=== PATIENT | female | born 1985 ===

== ENCOUNTER 2022-12-18 16:07 | Emergency (ER) | payer OTHER, SELFPAY ==
[2022-12-18 16:22] VITALS: BP 123/77; PULSE 88; RESP 18; TEMP 36.8; O2SAT 97; BMI 35.9
--- NOTE | 2022-12-18 16:24 | ED_ITS ---
HPI - General Adult General Chief complaint: General Medical Stated complaint: bowel movement issues Time Seen by Provider: 12/18/22 20:28 Related Data Allergies Allergy/AdvReac Type Severity Reaction Status Date / Time shellfish derived Allergy Anaphylaxis Verified 12/18/22 16:29 [facility] Social History Social History Smoked in Last 30 Days: No Use of substances other than those prescribed or required for medical reasons: No Advance Directives: No Advance Directives Information Provided: Yes Patient : No Physical Exam ED Vital Signs: Vital Signs - 24 hr 12/18/22 20:41 Temperature 98.0 F Pulse Rate 90 Respiratory Rate 18 Blood Pressure 114/72 Pulse Oximetry 98 Oxygen Delivery Method Room Air BMI result Body Mass Index 35.9 Course Course Course Narrative: RME-- 37 yo w/PMHx fatty liver, renal stone, c/o water diarrhea which turn to fecal incontinence/leaking since Saturday. Denies recent Antibiotic use, travel, sick contacts or melena/brbpr. Denies fever, abd pain, N CDiff, Stool studies, Labs, UA ordered Medical Decision Making Lab Data 12/18/22 17:07 12/18/22 17:07 Labs: Lab Results 12/18/22 12/18/22 12/18/22 Range/Units 17:07 17:07 17:07 WBC 10.8 (4.8-10.8) X10*3/uL RBC 4.73 (4.20-5.50) X10*6/uL Hgb 13.3 (12.0-16.0) g/dl Hct 40.9 (37.0-47.0) % MCV 86.5 (80.0-98.0) fL MCH 28.1 (27.0-33.0) pg MCHC 32.5 (31.0-35.0) g/dl RDW 13.4 (11.0-16.0) % Plt Count 277 (160-400) X10*3/uL MPV 9.1 L (9.4-12.3) fL Immature Gran % (Auto) 0.4 (0.0-0.4) % Neut % (Auto) 76.6 H (45-73) % Lymph % (Auto) 13.6 L (20-40) % [place] % (Auto) 6.8 (2-11) % Eos % (Auto) 2.3 (0-4) % Baso % (Auto) 0.3 (0-2) % Lymph # (Auto) 1.5 (1.2-4.9) X10*3/uL [place] # (Auto) 0.7 (0.1-1.2) X10*3/uL Eos # (Auto) 0.3 (0.0-0.4) X10*3/uL Baso # (Auto) 0.0 (0.0-0.2) X10*3/uL Abs Immat Gran (auto) 0.04 H (0.00-0.03) X10*3/uL Absolute Neuts (auto) 8.3 (2.0-8.3) x10*3/uL Absolute Nucleated RBC 0.000 (0.0-0.012) X10*3/uL Nucleated RBC % (auto) 0.0 (0.0-0.2) /100WBC Sodium 142 (135-145) mmol/L Potassium 4.1 (3.3-5.1) mmol/L Chloride 111 H (96-108) mmol/L Carbon Dioxide 21 L (22-29) mmol/L Anion Gap 14 (12-20) BUN 15 (9-16) mg/dL Creatinine 0.65 (0.5-1.4) mg/dL Estim Creat Clear Calc 131.0 Estimated GFR > 60 Random Glucose 104 (60-115) mg/dL Calcium 8.8 (8.4-10.2) mg/dL Magnesium 1.7 (1.6-2.6) mg/dL Total Bilirubin 0.6 (0.0-1.0) mg/dL Direct Bilirubin < 0.2 (0.0-0.5) mg/dL AST 34 H (5-31) U/L ALT 35 H (0-31) U/L Alkaline Phosphatase 72 (39-117) U/L Total Protein 7.5 (6.5-8.0) g/dL Albumin 4.1 (3.5-5.0) g/dL Beta HCG, Quant < 2 mIU/mL Urine Color Urine Appearance Urine pH (5.0-9.0) Ur Specific [place] (1.005-1.025) Urine Protein (Neg-Trace) mg/dL Urine Glucose (UA) (Negative) mg/dL Urine Ketones (Negative) mg/dL Urine Blood (Negative) Urine Nitrite (Negative) Ur Leukocyte Esterase (Negative) Urine RBC (0-2) /HPF Urine WBC (0-5) /HPF Ur Squamous Epith Cells (0-2) /HPF Urine Bacteria (None Seen) Hyaline Casts (0-2) /LPF Stl C. cayetanensis PCR (Not Detect.) Stool Rotavirus A PCR (Not Detect.) Stl Adenov F 40/41 PCR (Not Detect.) Stool Astrovirus (PCR) (Not Detect.) Stool Campylobacter PCR (Not Detect.) Stool Cryptosporidium PCR (Not Detect.) Stl Sh Tox Pr E STEC PCR (Not Detect.) Stool E coli O157 PCR (Not Detect.) Stl Enterotoxigenic E PCR (Not Detect.) Stool EPEC (PCR) (Not Detect.) Stool EAEC (PCR) (Not Detect.) Stl E. histolytica PCR (Not Detect.) Stool Giardia Lamblia PCR (Not Detect.) Stl P. shigelloides PCR (Not Detect.) Stool Salmonella PCR (Not Detect.) Stool Sapovirus (PCR) (Not Detect.) Stl Shigella/EIEC PCR (Not Detect.) St Y.enterocolitica PCR (Not Detect.) Stool Vibrio (PCR) (Not Detect.) Stl Vibrio cholerae PCR (Not Detect.) Stl Norovirus GI/GII PCR (Not Detect.) C. difficile Tox B Gene NEGATIVE (Negative) 12/18/22 12/18/22 Range/Units 17:07 21:03 WBC (4.8-10.8) X10*3/uL RBC (4.20-5.50) X10*6/uL Hgb (12.0-16.0) g/dl Hct (37.0-47.0) % MCV (80.0-98.0) fL MCH (27.0-33.0) pg MCHC (31.0-35.0) g/dl RDW (11.0-16.0) % Plt Count (160-400) X10*3/uL MPV (9.4-12.3) fL Immature Gran % (Auto) (0.0-0.4) % Neut % (Auto) (45-73) % Lymph % (Auto) (20-40) % [place] % (Auto) (2-11) % Eos % (Auto) (0-4) % Baso % (Auto) (0-2) % Lymph # (Auto) (1.2-4.9) X10*3/uL [place] # (Auto) (0.1-1.2) X10*3/uL Eos # (Auto) (0.0-0.4) X10*3/uL Baso # (Auto) (0.0-0.2) X10*3/uL Abs Immat Gran (auto) (0.00-0.03) X10*3/uL Absolute Neuts (auto) (2.0-8.3) x10*3/uL Absolute Nucleated RBC (0.0-0.012) X10*3/uL Nucleated RBC % (auto) (0.0-0.2) /100WBC Sodium (135-145) mmol/L Potassium (3.3-5.1) mmol/L Chloride (96-108) mmol/L Carbon Dioxide (22-29) mmol/L Anion Gap (12-20) BUN (9-16) mg/dL Creatinine (0.5-1.4) mg/dL Estim Creat Clear Calc Estimated GFR Random Glucose (60-115) mg/dL Calcium (8.4-10.2) mg/dL Magnesium (1.6-2.6) mg/dL Total Bilirubin (0.0-1.0) mg/dL Direct Bilirubin (0.0-0.5) mg/dL AST (5-31) U/L ALT (0-31) U/L Alkaline Phosphatase (39-117) U/L Total Protein (6.5-8.0) g/dL Albumin (3.5-5.0) g/dL Beta HCG, Quant mIU/mL Urine Color Yellow Urine Appearance Clear Urine pH 5.5 (5.0-9.0) Ur Specific [place] 1.025 (1.005-1.025) Urine Protein Negative (Neg-Trace) mg/dL Urine Glucose (UA) Negative (Negative) mg/dL Urine Ketones Negative (Negative) mg/dL Urine Blood Negative (Negative) Urine Nitrite Negative (Negative) Ur Leukocyte Esterase Trace H (Negative) Urine RBC 3-5 H (0-2) /HPF Urine WBC 0-5 (0-5) /HPF Ur Squamous Epith Cells 3-5 (0-2) /HPF Urine Bacteria 1+ (None Seen) Hyaline Casts 0-2 (0-2) /LPF Stl C. cayetanensis PCR Not Detected (Not Detect.) Stool Rotavirus A PCR Not Detected (Not Detect.) Stl Adenov F 40/41 PCR Not Detected (Not Detect.) Stool Astrovirus (PCR) Not Detected (Not Detect.) Stool Campylobacter PCR Not Detected (Not Detect.) Stool Cryptosporidium PCR Not Detected (Not Detect.) Stl Sh Tox Pr E STEC PCR Not Detected (Not Detect.) Stool E coli O157 PCR Not applicable (Not Detect.) Stl Enterotoxigenic E PCR Not Detected (Not Detect.) Stool EPEC (PCR) Not Detected (Not Detect.) Stool EAEC (PCR) Not Detected (Not Detect.) Stl E. histolytica PCR Not Detected (Not Detect.) Stool Giardia Lamblia PCR Detected A (Not Detect.) Stl P. shigelloides PCR Not Detected (Not Detect.) Stool Salmonella PCR Not Detected (Not Detect.) Stool Sapovirus (PCR) Not Detected (Not Detect.) Stl Shigella/EIEC PCR Not Detected (Not Detect.) St Y.enterocolitica PCR Not Detected (Not Detect.) Stool Vibrio (PCR) Not Detected (Not Detect.) Stl Vibrio cholerae PCR Not Detected (Not Detect.) Stl Norovirus GI/GII PCR Not Detected (Not Detect.) C. difficile Tox B Gene (Negative) Discharge Plan Discharge Clinical Impression: Diarrhea Patient Disposition: Home, Self-Care Instructions: Acute Diarrhea (ED) Referrals: Physician,Unknown J [Primary Care Provider] - Interventions: ED Discharge Assessment Last Done: 12/18/22 21:54 Discharge Date/Time: 12/18/22 21:54
[2022-12-18 17:14] LABS: MANUAL DIFF FLAG NO
[2022-12-18 17:16] LABS: Basophils Percent Auto 0.3 % (0-2); Eosinophils Absolute Auto 0.3 X10*3/uL (0.0-0.4); Eosinophils Percent Auto 2.3 % (0-4); Hematocrit 40.9 % (37.0-47.0); Hemoglobin 13.3 g/dl (12.0-16.0); Imm Gran Abs Auto 0.04 X10*3/uL (0.00-0.03); Imm Gran Pct Auto 0.4 % (0.0-0.4); Lymphocytes Absolute Auto 1.5 X10*3/uL (1.2-4.9); Lymphocytes Percent Auto 13.6 % (20-40); Mean Corpuscular HGB Conc 32.5 g/dl (31.0-35.0); Mean Corpuscular Hemoglobin 28.1 pg (27.0-33.0); Mean Corpuscular Volume 86.5 fL (80.0-98.0); Mean Platelet Volume 9.1 fL (9.4-12.3); Monocytes Absolute Auto 0.7 X10*3/uL (0.1-1.2); Monocytes Percent Auto 6.8 % (2-11); Neutrophils Absolute Auto 8.3 x10*3/uL (2.0-8.3); Neutrophils Percent Auto 76.6 % (45-73); Platelet Count 277 X10*3/uL (160-400); Red Blood Count 4.73 X10*6/uL (4.20-5.50); Red Cell Distribution Width 13.4 % (11.0-16.0); White Blood Count 10.8 X10*3/uL (4.8-10.8)
[2022-12-18 17:33] LABS: Alanine Aminotransferase 35 U/L (0-31); Albumin Level 4.1 g/dL (3.5-5.0); Alkaline Phosphatase 72 U/L (39-117); Anion Gap 14 (12-20); Aspartate Amino Transferase 34 U/L (5-31); Bilirubin Direct < 0.2 mg/dL (0.0-0.5); Bilirubin Total 0.6 mg/dL (0.0-1.0); Blood Urea Nitrogen 15 mg/dL (9-16); Calcium 8.8 mg/dL (8.4-10.2); Carbon Dioxide 21 mmol/L (22-29); Chloride 111 mmol/L (96-108); Estimated Glomerular Filt Rate > 60; Glucose Random 104 mg/dL (60-115); Magnesium 1.7 mg/dL (1.6-2.6); Potassium 4.1 mmol/L (3.3-5.1); Sodium 142 mmol/L (135-145); Total Protein 7.5 g/dL (6.5-8.0)
[2022-12-18 18:10] LABS: CDiff Gene PCR NEGATIVE (Negative)
[2022-12-18 20:41] VITALS: BP 114/72; PULSE 90; RESP 18; TEMP 36.7; O2SAT 98
[2022-12-18 21:14] LABS: Appearance Urine Clear; Color Urine Yellow; Glucose Urine UA Negative (Negative); Leukocyte Esterase Urine Trace (Negative); Nitrite Urine Negative (Negative); PH 5.5 (5.0-9.0); Specific Gravity - Urine 1.025 (1.005-1.025); UMIC TRIGGER UACC YES; Urine Blood Negative (Negative); Urine Ketones Negative (Negative); Urine Protein Negative (Neg-Trace)
--- NOTE | 2022-12-18 21:14 | ED_ITS ---
HPI - General Adult General Chief complaint: General Medical Stated complaint: bowel movement issues Time Seen by Provider: 12/18/22 20:28 History of Present Illness HPI narrative: Patient is a 29-year-old female presents today with having diarrhea that has been ongoing for about 4 days. No recent antibiotics no recent travel patient is from home no fever no chills no chest pain or shortness of breath no diaphoresis no coughing or congestion or upper respiratory symptoms. No vomiti ng. No abdominal pain. Diarrhea is brown to green in color. No camping history Related Data Allergies Allergy/AdvReac Type Severity Reaction Status Date / Time shellfish derived Allergy Anaphylaxis Verified 12/18/22 16:29 Review of Systems Review of Systems: Positive diarrhea Yes all other systems are reviewed and are negative PMFSH Past Medical History Attestation statement: The following information was validated with the patient. Social History Social History Advance Directives: No Advance Directives Information Provided: Yes Physical Exam ED Vital Signs: Vital Signs - 24 hr 12/18/22 16:22 12/18/22 20:41 Temperature 98.2 F 98.0 F Pulse Rate 88 90 Respiratory Rate 18 18 Blood Pressure 123/77 114/72 Pulse Oximetry 97 98 Oxygen Delivery Method Room Air Room Air BMI result Body Mass Index 35.9 Appearance: Alert. Oriented X3. No acute distress. Eyes: Pupils equal, round and reactive to light. ENT: Pharynx normal. Neck: Normal inspection. Neck supple. No lymph nodes noted. No crepitus CVS: Normal heart rate and rhythm. Pulses normal. Normal S1 and S2 Respiratory: No respiratory distress. Breath sounds normal. No Wheezing. No rales Abdomen: Soft and nontender. No rigidity. No distention. good BS x4 Skin: Skin warm and dry. Normal skin color. Normal skin turgor. Extremities: No lower extremity edema. Neurovascular intact to all extremities. No Lacerations. No Rash Neuro: Oriented X 3. No motor deficit. No sensory deficit. Moving all extermities. No slurred speech Medical Decision Making Medical Decision Making MDM Narrative: Positive diarrhea generalized malaise abdomen is soft nontender. Patient is able to tolerate fluids. No gross signs of dehydration. Electrolytes were checked. Patient's C diff was checked it was grossly negative. Will discharge patient home after comes back. Currently in stable condition Differential Diagnosis Differential Diagnoses: The differential diagnosis associated with the presentation includes Diarrhea, C diff, dehydration Lab Data MDM Lab Attestation statement: I reviewed the patient's lab results. 12/18/22 17:07 12/18/22 17:07 Labs: Lab Results 12/18/22 12/18/22 12/18/22 Range/Units 17:07 17:07 17:07 WBC 10.8 (4.8-10.8) X10*3/uL RBC 4.73 (4.20-5.50) X10*6/uL Hgb 13.3 (12.0-16.0) g/dl Hct 40.9 (37.0-47.0) % MCV 86.5 (80.0-98.0) fL MCH 28.1 (27.0-33.0) pg MCHC 32.5 (31.0-35.0) g/dl RDW 13.4 (11.0-16.0) % Plt Count 277 (160-400) X10*3/uL MPV 9.1 L (9.4-12.3) fL Immature Gran % (Auto) 0.4 (0.0-0.4) % Neut % (Auto) 76.6 H (45-73) % Lymph % (Auto) 13.6 L (20-40) % [place] % (Auto) 6.8 (2-11) % Eos % (Auto) 2.3 (0-4) % Baso % (Auto) 0.3 (0-2) % Lymph # (Auto) 1.5 (1.2-4.9) X10*3/uL [place] # (Auto) 0.7 (0.1-1.2) X10*3/uL Eos # (Auto) 0.3 (0.0-0.4) X10*3/uL Baso # (Auto) 0.0 (0.0-0.2) X10*3/uL Abs Immat Gran (auto) 0.04 H (0.00-0.03) X10*3/uL Absolute Neuts (auto) 8.3 (2.0-8.3) x10*3/uL Absolute Nucleated RBC 0.000 (0.0-0.012) X10*3/uL Nucleated RBC % (auto) 0.0 (0.0-0.2) /100WBC Sodium 142 (135-145) mmol/L Potassium 4.1 (3.3-5.1) mmol/L Chloride 111 H (96-108) mmol/L Carbon Dioxide 21 L (22-29) mmol/L Anion Gap 14 (12-20) BUN 15 (9-16) mg/dL Creatinine 0.65 (0.5-1.4) mg/dL Estim Creat Clear Calc 131.0 Estimated GFR > 60 Random Glucose 104 (60-115) mg/dL Calcium 8.8 (8.4-10.2) mg/dL Magnesium 1.7 (1.6-2.6) mg/dL Total Bilirubin 0.6 (0.0-1.0) mg/dL Direct Bilirubin < 0.2 (0.0-0.5) mg/dL AST 34 H (5-31) U/L ALT 35 H (0-31) U/L Alkaline Phosphatase 72 (39-117) U/L Total Protein 7.5 (6.5-8.0) g/dL Albumin 4.1 (3.5-5.0) g/dL Beta HCG, Quant < 2 mIU/mL Urine Color Urine Appearance Urine pH (5.0-9.0) Ur Specific [place] (1.005-1.025) Urine Protein (Neg-Trace) mg/dL Urine Glucose (UA) (Negative) mg/dL Urine Ketones (Negative) mg/dL Urine Blood (Negative) Urine Nitrite (Negative) Ur Leukocyte Esterase (Negative) Urine RBC (0-2) /HPF Urine WBC (0-5) /HPF Ur Squamous Epith Cells (0-2) /HPF Urine Bacteria (None Seen) Hyaline Casts (0-2) /LPF C. difficile Tox B Gene NEGATIVE (Negative) 12/18/22 Range/Units 21:03 WBC (4.8-10.8) X10*3/uL RBC (4.20-5.50) X10*6/uL Hgb (12.0-16.0) g/dl Hct (37.0-47.0) % MCV (80.0-98.0) fL MCH (27.0-33.0) pg MCHC (31.0-35.0) g/dl RDW (11.0-16.0) % Plt Count (160-400) X10*3/uL MPV (9.4-12.3) fL Immature Gran % (Auto) (0.0-0.4) % Neut % (Auto) (45-73) % Lymph % (Auto) (20-40) % [place] % (Auto) (2-11) % Eos % (Auto) (0-4) % Baso % (Auto) (0-2) % Lymph # (Auto) (1.2-4.9) X10*3/uL [place] # (Auto) (0.1-1.2) X10*3/uL Eos # (Auto) (0.0-0.4) X10*3/uL Baso # (Auto) (0.0-0.2) X10*3/uL Abs Immat Gran (auto) (0.00-0.03) X10*3/uL Absolute Neuts (auto) (2.0-8.3) x10*3/uL Absolute Nucleated RBC (0.0-0.012) X10*3/uL Nucleated RBC % (auto) (0.0-0.2) /100WBC Sodium (135-145) mmol/L Potassium (3.3-5.1) mmol/L Chloride (96-108) mmol/L Carbon Dioxide (22-29) mmol/L Anion Gap (12-20) BUN (9-16) mg/dL Creatinine (0.5-1.4) mg/dL Estim Creat Clear Calc Estimated GFR Random Glucose (60-115) mg/dL Calcium (8.4-10.2) mg/dL Magnesium (1.6-2.6) mg/dL Total Bilirubin (0.0-1.0) mg/dL Direct Bilirubin (0.0-0.5) mg/dL AST (5-31) U/L ALT (0-31) U/L Alkaline Phosphatase (39-117) U/L Total Protein (6.5-8.0) g/dL Albumin (3.5-5.0) g/dL Beta HCG, Quant mIU/mL Urine Color Yellow Urine Appearance Clear Urine pH 5.5 (5.0-9.0) Ur Specific [place] 1.025 (1.005-1.025) Urine Protein Negative (Neg-Trace) mg/dL Urine Glucose (UA) Negative (Negative) mg/dL Urine Ketones Negative (Negative) mg/dL Urine Blood Negative (Negative) Urine Nitrite Negative (Negative) Ur Leukocyte Esterase Trace H (Negative) Urine RBC 3-5 H (0-2) /HPF Urine WBC 0-5 (0-5) /HPF Ur Squamous Epith Cells 3-5 (0-2) /HPF Urine Bacteria 1+ (None Seen) Hyaline Casts 0-2 (0-2) /LPF C. difficile Tox B Gene (Negative) Discharge Plan Discharge Clinical Impression: Diarrhea Instructions: Acute Diarrhea (ED) Referrals: PhysicianZach [Primary Care Provider] -
[2022-12-18 21:19] LABS: Bacteria Urine 1+ (None Seen); Hyaline Casts Urine 0-2 /LPF (0-2); WBC Urine 0-5 /HPF (0-5)
[2022-12-18 21:26] LABS: HCG Quantitative < 2 mIU/mL
--- NOTE | 2022-12-18 21:53 | PC.NURSE ---
Discharge instructions given/explained to patient no apparent distress Ambulates safely/independently All of patient's questions answered
[2022-12-19 10:46] LABS: Adenovirus F 40/41 Not Detected (Not Detect.); Campylobacter Not Detected (Not Detect.); Cryptosporidium Not Detected (Not Detect.); Cyclospora cayetanensis Not Detected (Not Detect.); E. coli EAEC Not Detected (Not Detect.); E. coli EPEC Not Detected (Not Detect.); E. coli ETEC Not Detected (Not Detect.); E. coli STEC Not Detected (Not Detect.); Entamoeba histolytica Not Detected (Not Detect.); Giardia lamblia Detected (Not Detect.); Plesiomonas shigelloides Not Detected (Not Detect.); Salmonella Not Detected (Not Detect.); Shigella sp./EIEC Not Detected (Not Detect.); Vibrio Not Detected (Not Detect.); Vibrio Cholerae Not Detected (Not Detect.); Yersinia enterocolitica Not Detected (Not Detect.)
[2022-12-19 10:47] LABS: Astrovirus Not Detected (Not Detect.); Norovirus GI/GII Not Detected (Not Detect.); Rotavirus A Not Detected (Not Detect.); Sapovirus Not Detected (Not Detect.)
== END 2022-12-18 21:54 | disposition home or self-care (01) ==
PROVIDERS: Physician Assistant; Emergency Provider Emergency Medicine Emergency Medical Services
DX: R19.7 Diarrhea, unspecified (principal); A07.1 Giardiasis [lambliasis]
CPT/HCPCS: 36415; 80048; 80076; 81001; 83735; 84702; 85025; 87493; 87507; 99283; 99284

== ENCOUNTER 2023-07-04 13:31 | Emergency (ER) | payer OTHER, SELFPAY ==
--- NOTE | ~2023-07-04 | US_ITS ---
EXAMINATION: US PELVIS CLINICAL INFORMATION: Pelvic pain. COMPARISON: None available. TECHNIQUE: Ultrasound of the pelvis is performed using both transabdominal and transvaginal transducers along with Doppler. Transvaginal imaging is performed due to inadequate visualization transabdominally. FINDINGS: Uterus: The uterus is anteverted and measures 8.5 x 4.8 x 4.0 cm. The double wall endometrial thickness is 0.4 mm. An IUD is in place and appears to be in adequate position. The uterus is smooth in contour and has normal myometrial echogenicity. No visible fibroid. Adnexa: Both ovaries are visualized. There is normal color flow to the adnexa. There is no ovarian torsion. There is no pelvic ascites or fluid collection. Right ovary measures 2.3 x 2.2 x 2.4 cm. Flow is demonstrated within the right ovary. Left ovary measures 4.7 x 4.5 x 4.2 cm. Flow is demonstrated within the left ovary. There is a 4.1 x 3.2 x 3.2 cm hypoechoic structure associated with the left ovary. US/US pelvic and transvaginal IMPRESSION: 4.1 x 3.2 x 3.2 cm hypoechoic structure associated with the left ovary likely a hemorrhagic cyst.
--- NOTE | ~2023-07-04 | US_ITS ---
EXAMINATION: US PELVIS CLINICAL INFORMATION: Pelvic pain. COMPARISON: None available. TECHNIQUE: Ultrasound of the pelvis is performed using both transabdominal and transvaginal transducers along with Doppler. Transvaginal imaging is performed due to inadequate visualization transabdominally. FINDINGS: Uterus: The uterus is anteverted and measures 8.5 x 4.8 x 4.0 cm. The double wall endometrial thickness is 0.4 mm. An IUD is in place and appears to be in adequate position. The uterus is smooth in contour and has normal myometrial echogenicity. No visible fibroid. Adnexa: Both ovaries are visualized. There is normal color flow to the adnexa. There is no ovarian torsion. There is no pelvic ascites or fluid collection. Right ovary measures 2.3 x 2.2 x 2.4 cm. Flow is demonstrated within the right ovary. Left ovary measures 4.7 x 4.5 x 4.2 cm. Flow is demonstrated within the left ovary. There is a 4.1 x 3.2 x 3.2 cm hypoechoic structure associated with the left ovary. US/US pelvic ovarian doppler IMPRESSION: 4.1 x 3.2 x 3.2 cm hypoechoic structure associated with the left ovary likely a hemorrhagic cyst.
[2023-07-04 15:14] VITALS: BP 136/85; PULSE 81; RESP 18; TEMP 36.6; O2SAT 98; BMI 38.3
--- NOTE | 2023-07-04 15:20 | ED_ITS ---
HPI - General Adult General Chief complaint: Abdominal Pain Stated complaint: pain and discomfort all over Time Seen by Provider: 07/04/23 19:39 Source: patient Mode of arrival: ambulatory Limitations: no limitations History of Present Illness HPI narrative: 37-year-old female with no significant past medical presents with left lower abdominal pain. Symptoms started approximately 3 weeks ago. The symptoms are intermittent. It has been progressively getting worse. She describes it as a twisting sensation. It is now also CO some mild low back pain. The pain otherwise does not radiate. There is no urinary frequency, urgency or dysuria. Patient has an occasional mucousy vaginal discharge but no vaginal pain or itching or burning. Patient denies any vaginal bleeding. She has had no fevers or chills. There is no clear relieving or exacerbating features. She has been taking ibuprofen without significant improvement. Patient has had a history of a cyst in the past. Related Data Previous Rx's Medication Instructions Recorded naproxen 500 mg tablet 500 mg PO BID PRN pain #20 tabs 07/04/23 Allergies Allergy/AdvReac Type Severity Reaction Status Date / Time shellfish derived Allergy Anaphylaxis Verified 07/04/23 15:14 Review of Systems 2 Review of Systems: CONSTITUTIONAL: Denies weight loss, fever and chills. HEENT: Denies changes in vision and hearing. RESPIRATORY: Denies SOB and cough. CV: Denies palpitations no CP. GI: + abdominal pain,- nausea, vomiting and diarrhea. : Denies dysuria and urinary frequency. MSK: Denies myalgia and joint pain. SKIN: Denies rash and pruritus. NEUROLOGICAL: Denies headache and syncope. PSYCHIATRIC: Denies recent changes in mood. Denies anxiety and depression. All other ROS are negative unless in HPI [facility] Social History Social History Alcohol intake: current Alcohol intake frequency: a few times a month Smoked in Last 30 Days: No Use of substances other than those prescribed or required for medical reasons: No Advance Directives: No Physical Exam ED Vital Signs: Vital Signs - 24 hr 07/04/23 15:14 07/04/23 19:35 Temperature 97.8 F 97.3 F Pulse Rate 81 87 Respiratory Rate 18 16 Blood Pressure 136/85 122/71 Pulse Oximetry 98 98 Oxygen Delivery Method Room Air Room Air BMI result Body Mass Index 38.3 GEN: Well developed, no acute distress, alert, oriented HEENT: Normocephalic, atraumatic, normal external ears, nose appears normal, no oropharyngeal edema or exudates Eyes: Normal to appearance Neck: Supple, no lymphadenopathy Respiratory: Talks in complete sentences, no respiratory distress, clear to auscultation bilaterally Cardiovascular: Regular rate and rhythm, no murmurs rubs or gallops Abdomen: Soft, left lower quadrant tenderness no rebound or guarding, nondistended, no guarding, no rebound Back: No CVA tenderness Extremities: No clubbing cyanosis or edema Neurologic: No focal neurologic deficits, cranial nerves 2-12 intact, strength is 5/5 bilaterally Skin: No rash Course Course Course Narrative: RME: 37 yold female presents to the ED for pelvic pain left flank pain with known Gonohrrea diagnosis. patient also states her OBGYN is concernned due to inability to find IUD and worry about perforaiton. patient states also concerned for kidney stones due to history of left sided kidneys tones. labs orderd Medical Decision Making Medical Decision Making [facility] Narrative: 37-year-old female presents with left lower pelvic pain. Symptoms started 3 weeks ago. Examination reveals some mild tenderness without rebound or guarding. Differential diagnosis could include ovarian cyst, torsion, UTI, pyelonephritis, musculoskeletal pain, IBD, IBS. Plan will be to obtain an ultrasound, routine laboratory analysis, urinalysis. Patient can receive analgesia if requested. Differential Diagnosis Differential Diagnoses: The differential diagnosis associated with the presentation includes (See above) Admission/Observation Consideration of admission/observation: Escalation of care including admission/observation considered Lab Data [facility] Lab Attestation statement: I reviewed the patient's lab results. 07/04/23 15:31 07/04/23 15:31 Labs: Lab Results 07/04/23 Range/Units 15:31 WBC 10.3 (4.8-10.8) X10*3/uL RBC 4.61 (4.20-5.50) X10*6/uL Hgb 13.2 (12.0-16.0) g/dl Hct 40.1 (37.0-47.0) % MCV 87.0 (80.0-98.0) fL MCH 28.6 (27.0-33.0) pg MCHC 32.9 (31.0-35.0) g/dl RDW 13.7 (11.0-16.0) % Plt Count 273 (160-400) X10*3/uL MPV 9.1 L (9.4-12.3) fL Immature Gran % (Auto) 0.4 (0.0-0.4) % Neut % (Auto) 67.2 (45-73) % Lymph % (Auto) 19.6 L (20-40) % [place] % (Auto) 9.6 (2-11) % Eos % (Auto) 2.5 (0-4) % Baso % (Auto) 0.7 (0-2) % Lymph # (Auto) 2.0 (1.2-4.9) X10*3/uL [place] # (Auto) 1.0 (0.1-1.2) X10*3/uL Eos # (Auto) 0.3 (0.0-0.4) X10*3/uL Baso # (Auto) 0.1 (0.0-0.2) X10*3/uL Abs Immat Gran (auto) 0.04 H (0.00-0.03) X10*3/uL Absolute Neuts (auto) 6.9 (2.0-8.3) x10*3/uL Absolute Nucleated RBC 0.000 (0.0-0.012) X10*3/uL Nucleated RBC % (auto) 0.0 (0.0-0.2) /100WBC Sodium 140 (135-145) mmol/L Potassium 3.9 (3.3-5.1) mmol/L Chloride 107 (96-108) mmol/L Carbon Dioxide 22 (22-29) mmol/L Anion Gap 15 (12-20) BUN 13 (9-16) mg/dL Creatinine 0.70 (0.5-1.4) mg/dL Estim Creat Clear Calc 126.1 Estimated GFR > 60 Random Glucose 78 (60-115) mg/dL Calcium 9.2 (8.4-10.2) mg/dL Total Bilirubin 0.5 (0.0-1.0) mg/dL AST 29 (5-31) U/L ALT 24 (0-31) U/L Alkaline Phosphatase 52 (39-117) U/L Total Protein 7.7 (6.5-8.0) g/dL Albumin 4.1 (3.5-5.0) g/dL Beta HCG, Quant < 2 mIU/mL Urine Color Yellow Urine Appearance Cloudy Urine pH 7.5 (5.0-9.0) Ur Specific [place] 1.025 (1.005-1.025) Urine Protein Negative (Neg-Trace) mg/dL Urine Glucose (UA) Negative (Negative) mg/dL Urine Ketones Negative (Negative) mg/dL Urine Blood Negative (Negative) Urine Nitrite Negative (Negative) Ur Leukocyte Esterase Negative (Negative) Urine Test NEGATIVE (NEGATIVE) Independent Interpretation I performed an independent interpretation of an: Ultrasound (Left ovarian cyst) Radiology Impression Discussion of test interpretation with radiology: I have reviewed the radiologist's reading. Radiologist Impression: Impression: 4.1 x 3.2 x 3.2 cm hypoechoic structure associated with left ovary likely a hemorrhagic cyst. Dictated by Dr. John García Prescription Management I considered prescription management with: Pain Medication and Antibiotic Discharge Plan Discharge Clinical Impression: Hemorrhagic cyst of left ovary Patient Disposition: Home, Self-Care Instructions: Ovarian Cyst (ED) Additional Instructions: For pain: Naproxen 500 mg twice a day as needed Tylenol 1000 mg every 6 hours as needed for additional pain relief Prescriptions: New naproxen 500 mg tablet 500 mg PO BID PRN (Reason: pain) Qty: 20 0RF Referrals: [facility] [place] [Outside] - 07/08/23 Interventions: ED Discharge Assessment Last Done: 07/04/23 20:17 Discharge Date/Time: 07/04/23 20:17
[2023-07-04 15:36] LABS: MANUAL DIFF FLAG NO
[2023-07-04 15:37] LABS: Basophils Absolute Auto 0.1 X10*3/uL (0.0-0.2); Basophils Percent Auto 0.7 % (0-2); Eosinophils Absolute Auto 0.3 X10*3/uL (0.0-0.4); Eosinophils Percent Auto 2.5 % (0-4); Hematocrit 40.1 % (37.0-47.0); Hemoglobin 13.2 g/dl (12.0-16.0); Imm Gran Abs Auto 0.04 X10*3/uL (0.00-0.03); Imm Gran Pct Auto 0.4 % (0.0-0.4); Lymphocytes Percent Auto 19.6 % (20-40); Mean Corpuscular HGB Conc 32.9 g/dl (31.0-35.0); Mean Corpuscular Hemoglobin 28.6 pg (27.0-33.0); Mean Platelet Volume 9.1 fL (9.4-12.3); Monocytes Percent Auto 9.6 % (2-11); Neutrophils Absolute Auto 6.9 x10*3/uL (2.0-8.3); Neutrophils Percent Auto 67.2 % (45-73); Platelet Count 273 X10*3/uL (160-400); Red Blood Count 4.61 X10*6/uL (4.20-5.50); Red Cell Distribution Width 13.7 % (11.0-16.0); White Blood Count 10.3 X10*3/uL (4.8-10.8)
[2023-07-04 15:39] LABS: Appearance Urine Cloudy; Color Urine Yellow; Glucose Urine UA Negative (Negative); Leukocyte Esterase Urine Negative (Negative); Nitrite Urine Negative (Negative); PH 7.5 (5.0-9.0); Specific Gravity - Urine 1.025 (1.005-1.025); Urine Blood Negative (Negative); Urine Ketones Negative (Negative); Urine Protein Negative (Neg-Trace)
[2023-07-04 15:43] LABS: UPreg QC Valid YES; Urine Pregnancy NEGATIVE (NEGATIVE)
[2023-07-04 15:58] LABS: Alanine Aminotransferase 24 U/L (0-31); Albumin Level 4.1 g/dL (3.5-5.0); Alkaline Phosphatase 52 U/L (39-117); Anion Gap 15 (12-20); Aspartate Amino Transferase 29 U/L (5-31); Bilirubin Total 0.5 mg/dL (0.0-1.0); Blood Urea Nitrogen 13 mg/dL (9-16); Calcium 9.2 mg/dL (8.4-10.2); Carbon Dioxide 22 mmol/L (22-29); Chloride 107 mmol/L (96-108); Creatinine Clr Calc Pharmacy 126.1; Estimated Glomerular Filt Rate > 60; Glucose Random 78 mg/dL (60-115); Potassium 3.9 mmol/L (3.3-5.1); Sodium 140 mmol/L (135-145); Total Protein 7.7 g/dL (6.5-8.0)
[2023-07-04 16:05] LABS: HCG Quantitative < 2 mIU/mL
[2023-07-04 19:35] VITALS: BP 122/71; PULSE 87; RESP 16; TEMP 36.3; O2SAT 98
== END 2023-07-04 20:17 | disposition home or self-care (01) ==
PROVIDERS: Physician Assistant; Emergency Provider Emergency Medicine
DX: N83.202 Unspecified ovarian cyst, left side (principal); R10.32 Left lower quadrant pain
CPT/HCPCS: 36415; 76830; 76856; 80053; 81003; 81025; 84702; 85025; 93975; 99284

== ENCOUNTER 2023-09-27 19:09 | Emergency (ER) | payer OTHER, SELFPAY ==
--- NOTE | ~2023-09-27 | CT_ITS ---
EXAMINATION: CT ABDOMEN AND PELVIS WITHOUT CONTRAST CLINICAL INFORMATION: Flank pain, history of stones COMPARISON: None available. TECHNIQUE: Multidetector volumetric imaging was performed from the superior aspect of the liver through the pubic symphysis. Sagittal and coronal reformatted images were obtained on the technologist's workstation. This CT examination was performed using dose optimization techniques as appropriate, variously including the following: *Automated exposure control *Adjustment of mA and/or kV according to patient size (this includes techniques or standardized protocols for targeted exams where dose is matched to indication/reason for exam; i.e. extremities or head) *Use of iterative reconstruction technique DLP: 757 mGy-cm FINDINGS: LUNG BASES: There is platelike atelectasis right middle lobe. The lung bases are clear. The heart size is normal. LIVER, GALLBLADDER, AND BILIARY TREE: The liver is normal in size, shape, and attenuation. No focal hepatic lesion or biliary ductal dilatation is present. The gallbladder is unremarkable with no evidence of radiopaque gallstones, gallbladder wall thickening, or obvious pericholecystic inflammatory changes. PANCREAS: Unremarkable. SPLEEN: Unremarkable. ADRENAL GLANDS: Unremarkable. KIDNEYS AND URETERS: The kidneys are normal in size, shape, and attenuation. No hydronephrosis, hydroureter, or calculi seen. No perinephric stranding. BLADDER: Unremarkable. GASTROINTESTINAL TRACT: There are postsurgical changes along the greater curvature of stomach likely from gastric bypass. Small bowel loops are normal caliber. Appendix is normal caliber. ABDOMINAL WALL: No significant hernia is appreciated. LYMPH NODES: Normal. VASCULAR: Unremarkable. PELVIC VISCERA: There is no free air or free fluid. Uterus is anteverted with IUD well located within the endometrial canal. OSSEOUS STRUCTURES: Unremarkable. CT/CT abdomen pelvis wo IV con IMPRESSION: 1. No acute intra-abdominal process seen. 2. No radiopaque urolith or hydroureteronephrosis. 3. Postsurgical changes along the greater curvature of stomach likely from gastric bypass. Fleischner guidelines were followed.
[2023-09-27 19:35] VITALS: BP 125/82; PULSE 89; RESP 18; TEMP 37.1; O2SAT 98; BMI 37.4
--- NOTE | 2023-09-27 19:36 | ED.GENADULT ---
HPI - General Adult General Chief complaint: Abdominal Pain Stated complaint: ?UTI/?Kidney stone Time Seen by Provider: 09/27/23 21:48 Source: patient and family Mode of arrival: ambulatory Limitations: no limitations History of Present Illness HPI narrative: patient comes to the emergency room accompanied by her . Patient complaining of right-sided flank pain for 2 days. Patient complaining of urgency, no hematuria or dysuria, no fever or chills. Patient states that she is prone to having UTIs and kidney stones. Patient had stents placed and removed about a year ago at [facility]. Related Data Previous Rx's Medication Instructions Recorded naproxen 500 mg tablet 500 mg PO BID PRN pain #20 tabs 07/04/23 ketorolac 10 mg tablet 10 mg PO TID PRN pain #7 tabs 09/27/23 levofloxacin 500 mg tablet 500 mg PO DAILY #9 tabs 09/27/23 Allergies Allergy/AdvReac Type Severity Reaction Status Date / Time shellfish derived Allergy Anaphylaxis Verified 07/04/23 15:14 Review of Systems Review of Systems: Constitutional : No Weight loss, No Fever, No Chills, No Night Sweats, No Fatigue, No Malaise ENT/Mouth : No Hearing loss, No Ear Pain, No Nasal Congestion, No Sinus Pain, No Hoarseness, No sore throat, No Rhinorrhea, No Swallowing Difficulty Eyes: No Eye Pain, No Swelling, No Redness, No Foreign Body, No Discharge, No Vision Changes Cardiovascular : No Chest Pain, No SOB, No Dyspnea on Exertion, No Orthopnea, No Edema, No Palpitations Respiratory : No Cough, No Sputum, No Wheezing, No Smoke Exposure, No Dyspnea Gastrointestinal : No Nausea, No Vomiting, No Diarrhea, No Constipation, No abdominal Pain, No Hematochezia, No Melena Genitourinary : no irregular bleeding, No Dysuria, complaining of Urinary Frequency, No Hematuria, No Urinary Incontinence, No Urgency, Complaining of right-sided Flank Pain, No Urinary Flow Changes, No Hesitancy Musculoskeletal : No joint pain, No Myalgias, No Joint Swelling Skin : No Skin Lesions, No rash Neuro : No Weakness, No Numbness, No Paresthesias, No Loss of Consciousness, No Dizziness, No Headache Psych : No Anxiety/Panic, No Depression, No SI/HI/AH/VH, No Social Issues, Heme/Lymph: No Bruising, No Bleeding,No Lymphadenopathy Endocrine : No Polyuria, No Polydipsia, No Temperature Intolerance [facility] Past Medical History Medical History (Updated 09/27/23 @ 22:01 by Paulina Granados MD) Kidney stones Social History Social History Alcohol intake: current Alcohol intake frequency: a few times a month Advance Directives: No Advance Directives Information Provided: No Physical Exam ED Vital Signs: Vital Signs - 24 hr 09/27/23 19:35 Temperature 98.7 F Pulse Rate 89 Respiratory Rate 18 Blood Pressure 125/82 Pulse Oximetry 98 Oxygen Delivery Method Room Air BMI result Body Mass Index 37.4 Const Other: Appearance: Alert. Oriented X3. No acute distress. well-appearing Eyes: Pupils equal, round and reactive to light. ENT: Pharynx normal. Neck: Normal inspection. Neck supple. No lymph nodes noted. No crepitus CVS: Normal heart rate and rhythm. Pulses normal. Normal S1 and S2 Respiratory: No respiratory distress. Breath sounds normal. No Wheezing. No rales Abdomen: Soft and nontender. No rigidity. No distention. positive CVA tenderness on the right Skin: Skin warm and dry. Normal skin color. Normal skin turgor. Extremities: No lower extremity edema. No Lacerations. No Rash Neuro: Oriented X 3. No motor deficit. No sensory deficit. Moving all extremities. No slurred speech. CN 2 through 12 grossly intact Psych: calm, cooperative, normal affect Course Course Course Narrative: RME performed by Evon Vu PA-C. Patient is a 37 year old assigned female at presenting to the emergency department with flank pain and concern of UTI / kidney stones. Labs, imaging, swabs ordered. Patient placed back in the waiting room pending room availability and results. Medical Decision Making Medical Decision Making MDM Narrative: - I discussed the physical exam with the patient, patient likely has kidney stones versus pyelonephritis or both - interpretation of labs, white blood cell count 12.9, normal chemistry , patient does not have fever , normal blood pressure, not tachycardic, sepsis not suspected. patient has a UTI, clinically patient has pyelonephritis - Patient given p.o. levofloxacin and IM Toradol in the ED. - my interpretation of CT scan: No kidney stones visualized, no hydronephrosis Differential Diagnosis Differential Diagnoses: The differential diagnosis associated with the presentation includes ( UTI, pyelonephritis, ureterolithiasis, renal colic) Admission/Observation Consideration of admission/observation: Escalation of care including admission/observation considered ( given patient's history and presentation, patient was concerned on arrival) Lab Data MDM Lab Attestation statement: I reviewed the patient's lab results. 09/27/23 20:32 09/27/23 20:31 Labs: Lab Results 09/27/23 09/27/23 Range/Units 20:31 20:32 WBC 12.9 H (4.8-10.8) X10*3/uL RBC 4.54 (4.20-5.50) X10*6/uL Hgb 12.7 (12.0-16.0) g/dl Hct 39.2 (37.0-47.0) % MCV 86.3 (80.0-98.0) fL MCH 28.0 (27.0-33.0) pg MCHC 32.4 (31.0-35.0) g/dl RDW 13.5 (11.0-16.0) % Plt Count 262 (160-400) X10*3/uL MPV 9.1 L (9.4-12.3) fL Immature Gran % (Auto) 0.3 (0.0-0.4) % Neut % (Auto) 73.8 H (45-73) % Lymph % (Auto) 14.9 L (20-40) % [place] % (Auto) 8.7 (2-11) % Eos % (Auto) 1.9 (0-4) % Baso % (Auto) 0.4 (0-2) % Lymph # (Auto) 1.9 (1.2-4.9) X10*3/uL [place] # (Auto) 1.1 (0.1-1.2) X10*3/uL Eos # (Auto) 0.3 (0.0-0.4) X10*3/uL Baso # (Auto) 0.1 (0.0-0.2) X10*3/uL Abs Immat Gran (auto) 0.04 H (0.00-0.03) X10*3/uL Absolute Neuts (auto) 9.5 H (2.0-8.3) x10*3/uL Absolute Nucleated RBC 0.000 (0.0-0.012) X10*3/uL Nucleated RBC % (auto) 0.0 (0.0-0.2) /100WBC Sodium 137 (135-145) mmol/L Potassium 3.7 (3.3-5.1) mmol/L Chloride 108 (96-108) mmol/L Carbon Dioxide 23 (22-29) mmol/L Anion Gap 10 L (12-20) BUN 14 (9-16) mg/dL Creatinine 0.70 (0.5-1.4) mg/dL Estim Creat Clear Calc 124.4 Estimated GFR > 60 Random Glucose 110 (60-115) mg/dL Calcium 8.7 (8.4-10.2) mg/dL Magnesium 2.0 (1.6-2.6) mg/dL Total Bilirubin 0.3 (0.0-1.0) mg/dL AST 17 (5-31) U/L ALT 19 (0-31) U/L Alkaline Phosphatase 61 (39-117) U/L Total Protein 7.4 (6.5-8.0) g/dL Albumin 3.9 (3.5-5.0) g/dL Beta HCG, Quant < 2 mIU/mL Urine Color Yellow Urine Appearance Cloudy Urine pH 7.5 (5.0-9.0) Ur Specific [place] 1.025 (1.005-1.025) Urine Protein 30 (1+) H (Neg-Trace) mg/dL Urine Glucose (UA) Negative (Negative) mg/dL Urine Ketones Negative (Negative) mg/dL Urine Blood Moderate (2+) H (Negative) Urine Nitrite Negative (Negative) Ur Leukocyte Esterase Large (3+) H (Negative) Urine RBC >20 H (0-2) /HPF Urine WBC >50 H (0-5) /HPF Ur Squamous Epith Cells 3-5 (0-2) /HPF Urine Bacteria 4+ (None Seen) Hyaline Casts 0-2 (0-2) /LPF Influenza Type A (PCR) NEGATIVE (Negative) Influenza Type B (PCR) NEGATIVE (Negative) RSV RNA Qual (PCR) NEGATIVE (Negative) SARS-CoV-2 RNA (RT-PCR) NEGATIVE (Negative) Independent Interpretation I performed an independent interpretation of an: CT Scan Radiology Impression Discussion of test interpretation with radiology: I have reviewed the radiologist's reading. Radiologist Impression: FINDINGS: LUNG BASES: There is platelike atelectasis right middle lobe. The lung bases are clear. The heart size is normal. LIVER, GALLBLADDER, AND BILIARY TREE: The liver is normal in size, shape, and attenuation. No focal hepatic lesion or biliary ductal dilatation is present. The gallbladder is unremarkable with no evidence of radiopaque gallstones, gallbladder wall thickening, or obvious pericholecystic inflammatory changes. PANCREAS: Unremarkable. SPLEEN: Unremarkable. ADRENAL GLANDS: Unremarkable. KIDNEYS AND URETERS: The kidneys are normal in size, shape, and attenuation. No hydronephrosis, hydroureter, or calculi seen. No perinephric stranding. BLADDER: Unremarkable. GASTROINTESTINAL TRACT: There are postsurgical changes along the greater curvature of stomach likely from gastric bypass. Small bowel loops are normal caliber. Appendix is normal caliber. ABDOMINAL WALL: No significant hernia is appreciated. LYMPH NODES: Normal. VASCULAR: Unremarkable. PELVIC VISCERA: There is no free air or free fluid. Uterus is anteverted with IUD well located within the endometrial canal. OSSEOUS STRUCTURES: Unremarkable. CT/CT abdomen pelvis wo IV con IMPRESSION: 1. No acute intra-abdominal process seen. 2. No radiopaque urolith or hydroureteronephrosis. 3. Postsurgical changes along the greater curvature of stomach likely from gastric bypass. Fleischner guidelines were followed. Critical Care Time Critical Care Time Critical Care Time: Yes Total Critical Care Time: 30 Attestation: I have personally provided critical care time. Time includes review of lab data, radiology results, discussion with consultants, and monitoring for potential decompensation. Intervention performed as documented. Discharge Plan Discharge Clinical Impression: Pyelonephritis Patient Disposition: Home, Self-Care Instructions: Kidney Infection (ED) Additional Instructions: Please follow-up with your primary care physician tomorrow. If you have any worsening or new symptoms, please return to the emergency room or call 911 Prescriptions: New levofloxacin 500 mg tablet 500 mg PO DAILY Qty: 9 0RF ketorolac 10 mg tablet 10 mg PO TID PRN (Reason: pain) Qty: 7 0RF Rx Instructions: do not take this medication with naproxen, ibuprofen or NSAIDs No Action naproxen 500 mg tablet 500 mg PO BID PRN (Reason: pain) Qty: 20 0RF
[2023-09-27 20:37] LABS: MANUAL DIFF FLAG NO
--- NOTE | 2023-09-27 20:37 | MHC.EDTECH ---
Patient blood drawn ,rsv /covid swab collected ,urine sample collected and sent to lab .
[2023-09-27 20:39] LABS: Appearance Urine Cloudy; Color Urine Yellow; Glucose Urine UA Negative (Negative); Leukocyte Esterase Urine Large (3+) (Negative); Nitrite Urine Negative (Negative); PH 7.5 (5.0-9.0); Specific Gravity - Urine 1.025 (1.005-1.025); UMIC TRIGGER UACC YES; Urine Blood Moderate (2+) (Negative); Urine Ketones Negative (Negative); Urine Protein 30 (1+) mg/dL (Neg-Trace)
[2023-09-27 20:39] LABS: Basophils Absolute Auto 0.1 X10*3/uL (0.0-0.2); Basophils Percent Auto 0.4 % (0-2); Eosinophils Absolute Auto 0.3 X10*3/uL (0.0-0.4); Eosinophils Percent Auto 1.9 % (0-4); Hematocrit 39.2 % (37.0-47.0); Hemoglobin 12.7 g/dl (12.0-16.0); Imm Gran Abs Auto 0.04 X10*3/uL (0.00-0.03); Imm Gran Pct Auto 0.3 % (0.0-0.4); Lymphocytes Absolute Auto 1.9 X10*3/uL (1.2-4.9); Lymphocytes Percent Auto 14.9 % (20-40); Mean Corpuscular HGB Conc 32.4 g/dl (31.0-35.0); Mean Corpuscular Volume 86.3 fL (80.0-98.0); Mean Platelet Volume 9.1 fL (9.4-12.3); Monocytes Absolute Auto 1.1 X10*3/uL (0.1-1.2); Monocytes Percent Auto 8.7 % (2-11); Neutrophils Absolute Auto 9.5 x10*3/uL (2.0-8.3); Neutrophils Percent Auto 73.8 % (45-73); Platelet Count 262 X10*3/uL (160-400); Red Blood Count 4.54 X10*6/uL (4.20-5.50); Red Cell Distribution Width 13.5 % (11.0-16.0); White Blood Count 12.9 X10*3/uL (4.8-10.8)
[2023-09-27 20:44] LABS: Bacteria Urine 4+ (None Seen); Hyaline Casts Urine 0-2 /LPF (0-2); RBC Urine >20 /HPF (0-2); UACC Culture Trigger YES; WBC Urine >50 /HPF (0-5)
[2023-09-27 21:00] LABS: Alanine Aminotransferase 19 U/L (0-31); Albumin Level 3.9 g/dL (3.5-5.0); Alkaline Phosphatase 61 U/L (39-117); Anion Gap 10 (12-20); Aspartate Amino Transferase 17 U/L (5-31); Bilirubin Total 0.3 mg/dL (0.0-1.0); Blood Urea Nitrogen 14 mg/dL (9-16); Calcium 8.7 mg/dL (8.4-10.2); Carbon Dioxide 23 mmol/L (22-29); Chloride 108 mmol/L (96-108); Creatinine Clr Calc Pharmacy 124.4; Estimated Glomerular Filt Rate > 60; Glucose Random 110 mg/dL (60-115); Potassium 3.7 mmol/L (3.3-5.1); Sodium 137 mmol/L (135-145); Total Protein 7.4 g/dL (6.5-8.0)
[2023-09-27 21:04] LABS: HCG Quantitative < 2 mIU/mL
[2023-09-27 21:15] LABS: Influenza A PCR NEGATIVE (Negative); Influenza B PCR NEGATIVE (Negative); Resp Syncy Virus RNA Qual PCR NEGATIVE (Negative); SARS COV2 PCR INHOUSE NEGATIVE (Negative)
[2023-09-27 22:10] VITALS: BP 116/76; PULSE 91; RESP 16; TEMP 36.7; O2SAT 97
[2023-09-27] MEDS: levoFLOXacin 500 MG TABLET PO (22:11)
[2023-09-27] MEDS: Ketorolac Tromethamine 60 MG/2 ML VIAL IM (22:11)
--- NOTE | 2023-09-27 22:17 | PC.NURSE ---
pt a&ox4, respirations even and unlabored. pt reporting right flank pain with increased urination and increased urination pain. pt reports hx of kidney stones and reports pain feels similar to a stone. pt denies n/v/d, pt denies any blood in urine. vss.
== END 2023-09-27 22:19 | disposition home or self-care (01) ==
PROVIDERS: Physician Assistant Medical; Emergency Provider Emergency Medicine
DX: N12 Tubulo-interstitial nephritis, not specified as acute or chronic (principal); Z20.822 Contact with and (suspected) exposure to COVID-19; Z20.828 Contact with and (suspected) exposure to other viral communicable diseases; Z79.899 Other long term (current) drug therapy
CPT/HCPCS: 0241U; 74176; 80053; 81001; 83735; 84702; 85025; 87086; 87088; 87186; 99284; J1885

== ENCOUNTER 2024-05-28 14:03 | Emergency (ER) | payer OTHER, SELFPAY ==
--- NOTE | ~2024-05-28 | CT_ITS ---
EXAMINATION: CT ABDOMEN AND PELVIS WITHOUT CONTRAST CLINICAL INFORMATION: Abdominal pain. Rectal bleeding. COMPARISON: CT abdomen and pelvis 09/27/2023. TECHNIQUE: Multidetector volumetric imaging was performed from the superior aspect of the liver through the pubic symphysis. Sagittal and coronal reformatted images were obtained on the technologist's workstation. This CT examination was performed using dose optimization techniques as appropriate, variously including the following: *Automated exposure control *Adjustment of mA and/or kV according to patient size (this includes techniques or standardized protocols for targeted exams where dose is matched to indication/reason for exam; i.e. extremities or head) *Use of iterative reconstruction technique DLP: 864 mGy-cm FINDINGS: LUNG BASES: The visualized lung bases are unremarkable. LIVER, GALLBLADDER, AND BILIARY TREE: The liver is normal in size, shape, and attenuation. No focal hepatic lesion or biliary ductal dilatation is present. The gallbladder is unremarkable with no evidence of radiopaque gallstones, gallbladder wall thickening, or obvious pericholecystic inflammatory changes. PANCREAS: Unremarkable. SPLEEN: Unremarkable. ADRENAL GLANDS: Unremarkable. KIDNEYS AND URETERS: 2 cm rounded low-density (7 Hounsfield units) focus with peripheral dystrophic calcification most consistent with a benign, simple cyst in the superior pole right kidney which warrants no additional imaging follow-up. 1.5 cm rounded benign-appearing simple cyst in the left kidney requiring no additional imaging follow-up. BLADDER: Unremarkable. GASTROINTESTINAL TRACT: Normal appendix. No free intraperitoneal fluid or gas collections. Normal appearance of the sigmoid colon and sigmoid mesentery. Suture material consistent with a gastric sleeve resection is noted. Normal appearance of the duodenum. No small bowel dilatation. Normal appearance of the small bowel mesentery. ABDOMINAL WALL: Periumbilical hernia measuring 1 cm in diameter containing omental fat without associated inflammatory changes. LYMPH NODES: Normal. VASCULAR: Unremarkable. PELVIC VISCERA: Unremarkable. OSSEOUS STRUCTURES: Mild multilevel facet hypertrophic changes of the lumbar spine. CT/CT abdomen pelvis wo IV con IMPRESSION: 1. No acute abnormalities identified. 2. Status post gastric sleeve resection. 3. Normal appendix. No free intraperitoneal fluid or gas collections. Electronically signed by: Vasile Fox MD 05/28/2024 11:16 PM EDT
[2024-05-28 14:37] VITALS: BP 148/96; PULSE 99; RESP 18; TEMP 36.6; O2SAT 99; BMI 35.9
--- NOTE | 2024-05-28 14:38 | ED_ITS ---
HPI - Abdominal Pain General Chief Complaint: Abdominal Pain Stated Complaint: body aches-abd pain Time Seen by Provider: 05/28/24 18:28 Source: patient Mode of arrival: ambulatory Limitations: no limitations History of Present Illness ED Provider: DR. Andrea HPI narrative: 38-year-old female with no significant past medical history came in for evaluation of 2 weeks of bilateral flank pain and diffuse abdominal pain, persistent watery diarrhea that turned into bright red blood diarrhea today, increased abdominal cramps, no fever, no chills, no recent use of antibiotic, no recent travel, no sick contacts, no exposure to bad foods. Last time diarrhea while she was waiting in the waiting room and was mixed with bright red blood, passing flatus. No dysuria, no frequency urination, no hematuria, no vaginal discharge or bleed, declined chance of being . Related Data Previous Rx's ?Medication ?Instructions ?Recorded naproxen 500 mg tablet 500 mg PO BID PRN pain #20 tabs 07/04/23 ketorolac 10 mg tablet 10 mg PO TID PRN pain #7 tabs 09/27/23 levofloxacin 500 mg tablet 500 mg PO DAILY #9 tabs 09/27/23 Allergies Allergy/AdvReac Type Severity Reaction Status Date / Time shellfish derived Allergy Anaphylaxis Verified 05/28/24 14:41 Review of Systems Review of Systems All other systems are reviewed and are negative Constitutional: Reports as per HPI and Reports no additional constitutional complaints Eyes: Reports as per HPI and Reports no additional eye complaints Reports system reviewed and no additional complaints, except as documented Cardiovascular: Reports as per HPI and Reports no additional cardiovascular complaints Respiratory: Reports as per HPI and Reports no additional respiratory complaints Gastrointestinal: Reports as per HPI and Reports no additional gastrointestinal complaints Genitourinary: Reports no additional female genitourinary complaints Musculoskeletal: Reports no additional musculoskeletal complaints Skin/Breast: Reports system reviewed and no additional complaints, except as docu Psychiatric: Reports no additional psychiatric complaints Endocrine: Reports no additional endocrine complaints Hematologic/Lymphatic: Reports no additional hematologic/lymphatic complaints Allergic/Immunologic: Reports no additional allergic/immunologic complaints Reports system reviewed and no additional complaints, except as documented and Reports Abnormal speech present PMFSH Past Medical History Medical History Kidney stones Social History Social History Alcohol intake: current Alcohol intake frequency: a few times a month Advance Directives: No Advance Directives Information Provided: Yes Physical Exam ED Vital Signs: Vital Signs - 24 hr 05/28/24 14:37 05/28/24 19:27 05/28/24 21:59 Temperature 97.8 F 98.9 F 98.4 F Pulse Rate 99 92 95 Respiratory Rate 18 20 17 Blood Pressure 148/96 H 119/83 126/87 Pulse Oximetry 99 100 98 Oxygen Delivery Method Room Air Room Air Room Air 05/29/24 00:29 Temperature 98.2 F Pulse Rate 87 Respiratory Rate 18 Blood Pressure 141/79 H Pulse Oximetry 97 Oxygen Delivery Method Room Air BMI result Body Mass Index 35.9 Vital signs have been reviewed and appear to be correct. Blood pressure elevated. Heart rate normal. Respiratory rate normal. Temperature normal. Oxygen saturation normal. Appearance: Alert. Oriented X3. No acute distress. Head: Normal external exam. Normocephalic. Atraumatic. No Arellano signs noted. No raccoon eyes noted Eyes: PERRLA. EOMI. Conjunctiva and sclera normal. Eyelids normal. ENT: TM's Normal. Pharynx normal. Uvula midline. Moist mucous membranes. No trismus noted. No drooling noted. No muffled voice noted. Neck: Normal inspection. Neck supple. FROM. No adenopathy. Thyroid Normal. No meningeal signs. No neck mass noted. CVS: Normal heart rate and rhythm. Heart sound normal. No murmurs noted. Pulses normal throughout. Respiratory: No respiratory distress. Painless inspiration. Breath sounds normal. No wheezes/rales/rhonchi noted. Chest nontender. No accessory muscle usage noted or decreased air movement noted. Abdomen: Soft and nontender. Bowel sounds normal in all 4 quadrants. No distention noted. No organomegaly noted. No visible injury noted. Rectal exam: No external hemorrhoid, no palpable internal hemorrhoid, brown stool mixed with trace of bright red blood positive for guaiac. Back: No CVA tenderness. Full range of motion noted. Skin: Skin warm and dry. Normal skin color. Normal skin turgor. No rashes/lesions/lacerations noted. Extremities: No lower extremity edema. Extremities exhibit normal range of motion. Extremities nontender. Neuro: Oriented X 3. Cranial nerve exam: II-XII are grossly intact No motor deficit. No sensory deficit. Reflexes normal. Course Course Course Narrative: This is a Rapid Medical Examination (RME) performed by Fidelia Landon PA-C in triage. Full HPI, ROS, assessment and treatment plan per primary provider in the Main ED. 38 yo female hx of renal colic here for eval of 6/10 bilateral flank pain x3 weeks. admits to assoc diarrhea. noticed bright red blood in the toilet bowl this morning. not on AC. no hx of similar. +no cvat b/l. obese abd, soft, nd/nt, no rebound or guarding. Plan: labs, ua, u preg, obs Reevaluation(s) Reevaluation #1: No acute intra-abdominal pathology on the CT, patient had another bowel movement in the emergency department reported no active bleeding, stable vital signs, H&H is stable, patient was offered to stay overnight for serial CBC and GI consultation patient prefers to go home and follow-up as an outpatient with GI. Patient stable can not be discharged. Time: 00:54 Medical Decision Making Differential Diagnosis Differential Diagnoses: The differential diagnosis associated with the presentation includes (Diverticular disease, acute colitis, hemorrhoids, severe anemia, electrolyte derangement, UTI, .) Admission/Observation Consideration of admission/observation: Escalation of care including admission/observation considered Lab Data MDM Lab Attestation statement: I reviewed the patient's lab results. 05/28/24 14:51 05/28/24 14:51 Labs: Lab Results 05/28/24 05/28/24 05/28/24 Range/Units 14:51 18:42 18:55 WBC 9.1 (4.8-10.8) X10*3/uL RBC 4.79 (4.20-5.50) X10*6/uL Hgb 13.9 (12.0-16.0) g/dl Hct 41.5 (37.0-47.0) % MCV 86.6 (80.0-98.0) fL MCH 29.0 (27.0-33.0) pg MCHC 33.5 (31.0-35.0) g/dl RDW 13.4 (11.0-16.0) % Plt Count 303 (160-400) X10*3/uL MPV 8.9 L (9.4-12.3) fL Immature Gran % (Auto) 0.5 H (0.0-0.4) % Neut % (Auto) 59.6 (45-73) % Lymph % (Auto) 28.2 (20-40) % [place] % (Auto) 8.6 (2-11) % Eos % (Auto) 2.4 (0-4) % Baso % (Auto) 0.7 (0-2) % Lymph # (Auto) 2.6 (1.2-4.9) X10*3/uL [place] # (Auto) 0.8 (0.1-1.2) X10*3/uL Eos # (Auto) 0.2 (0.0-0.4) X10*3/uL Baso # (Auto) 0.1 (0.0-0.2) X10*3/uL Abs Immat Gran (auto) 0.05 H (0.00-0.03) X10*3/uL Absolute Neuts (auto) 5.4 (2.0-8.3) x10*3/uL Absolute Nucleated RBC 0.000 (0.0-0.012) X10*3/uL Nucleated RBC % (auto) 0.0 (0.0-0.2) /100WBC Sodium 140 (135-145) mmol/L Potassium 3.8 (3.3-5.1) mmol/L Chloride 106 (96-108) mmol/L Carbon Dioxide 23 (22-29) mmol/L Anion Gap 15 (12-20) BUN 14 (9-16) mg/dL Creatinine 0.76 (0.5-1.4) mg/dL Estim Creat Clear Calc 115.1 Estimated GFR > 60 Random Glucose 109 (60-115) mg/dL Calcium 9.5 D (8.4-10.2) mg/dL Magnesium 1.7 (1.6-2.6) mg/dL Total Bilirubin 0.3 (0.0-1.0) mg/dL AST 15 (5-31) U/L ALT 15 (0-31) U/L Alkaline Phosphatase 56 (39-117) U/L Total Protein 8.0 (6.5-8.0) g/dL Albumin 4.2 (3.5-5.0) g/dL Urine Color Yellow Urine Appearance Clear Urine pH 5.5 (5.0-9.0) Ur Specific [place] 1.025 (1.005-1.025) Urine Protein Trace (Neg-Trace) mg/dL Urine Glucose (UA) Negative (Negative) mg/dL Urine Ketones Negative (Negative) mg/dL Urine Blood Negative (Negative) Urine Nitrite Negative (Negative) Ur Leukocyte Esterase Negative (Negative) Urine Test NEGATIVE (NEGATIVE) Stool Occult Blood (NEGATIVE) Blood Type B Negative Antibody Screen NEGATIVE 05/28/24 Range/Units 18:57 WBC (4.8-10.8) X10*3/uL RBC (4.20-5.50) X10*6/uL Hgb (12.0-16.0) g/dl Hct (37.0-47.0) % MCV (80.0-98.0) fL MCH (27.0-33.0) pg MCHC (31.0-35.0) g/dl RDW (11.0-16.0) % Plt Count (160-400) X10*3/uL MPV (9.4-12.3) fL Immature Gran % (Auto) (0.0-0.4) % Neut % (Auto) (45-73) % Lymph % (Auto) (20-40) % [place] % (Auto) (2-11) % Eos % (Auto) (0-4) % Baso % (Auto) (0-2) % Lymph # (Auto) (1.2-4.9) X10*3/uL [place] # (Auto) (0.1-1.2) X10*3/uL Eos # (Auto) (0.0-0.4) X10*3/uL Baso # (Auto) (0.0-0.2) X10*3/uL Abs Immat Gran (auto) (0.00-0.03) X10*3/uL Absolute Neuts (auto) (2.0-8.3) x10*3/uL Absolute Nucleated RBC (0.0-0.012) X10*3/uL Nucleated RBC % (auto) (0.0-0.2) /100WBC Sodium (135-145) mmol/L Potassium (3.3-5.1) mmol/L Chloride (96-108) mmol/L Carbon Dioxide (22-29) mmol/L Anion Gap (12-20) BUN (9-16) mg/dL Creatinine (0.5-1.4) mg/dL Estim Creat Clear Calc Estimated GFR Random Glucose (60-115) mg/dL Calcium (8.4-10.2) mg/dL Magnesium (1.6-2.6) mg/dL Total Bilirubin (0.0-1.0) mg/dL AST (5-31) U/L ALT (0-31) U/L Alkaline Phosphatase (39-117) U/L Total Protein (6.5-8.0) g/dL Albumin (3.5-5.0) g/dL Urine Color Urine Appearance Urine pH (5.0-9.0) Ur Specific [place] (1.005-1.025) Urine Protein (Neg-Trace) mg/dL Urine Glucose (UA) (Negative) mg/dL Urine Ketones (Negative) mg/dL Urine Blood (Negative) Urine Nitrite (Negative) Ur Leukocyte Esterase (Negative) Urine Test (NEGATIVE) Stool Occult Blood POSITIVE (NEGATIVE) Blood Type Antibody Screen Independent Interpretation I performed an independent interpretation of an: CT Scan (Abdomen and pelvis:1. No acute abnormalities identified. 2. Status post gastric sleeve resection. 3. Normal appendix. No free intraperitoneal fluid or gas collections. ) Radiology Impression Discussion of test interpretation with radiology: I have reviewed the radiologist's reading. Medications Administered Discontinued Medications Generic Name Dose Route Start Last Admin Trade Name Freq PRN Reason Stop Dose Admin Sodium Chloride 1,000 mls @ 999 mls/hr 05/28/24 18:46 05/28/24 19:09 Ns IV 05/28/24 19:46 999 mls/hr .[id number] ONE Administration Discharge Plan Discharge Clinical Impression: Abdominal pain, BRBPR (bright red blood per rectum) Patient Disposition: Home, Self-Care Instructions: Rectal Bleeding (ED), Abdominal Pain (ED) Prescriptions: No Action naproxen 500 mg tablet 500 mg PO BID PRN (Reason: pain) Qty: 20 0RF levofloxacin 500 mg tablet 500 mg PO DAILY Qty: 9 0RF ketorolac 10 mg tablet 10 mg PO TID PRN (Reason: pain) Qty: 7 0RF Rx Instructions: do not take this medication with naproxen, ibuprofen or NSAIDs Referrals: Colton Lindsey MD [Physician] - Print Language: Mohawk
[2024-05-28 14:55] LABS: MANUAL DIFF FLAG NO
[2024-05-28 14:59] LABS: Basophils Absolute Auto 0.1 X10*3/uL (0.0-0.2); Basophils Percent Auto 0.7 % (0-2); Eosinophils Absolute Auto 0.2 X10*3/uL (0.0-0.4); Eosinophils Percent Auto 2.4 % (0-4); Hematocrit 41.5 % (37.0-47.0); Hemoglobin 13.9 g/dl (12.0-16.0); Imm Gran Abs Auto 0.05 X10*3/uL (0.00-0.03); Imm Gran Pct Auto 0.5 % (0.0-0.4); Lymphocytes Absolute Auto 2.6 X10*3/uL (1.2-4.9); Lymphocytes Percent Auto 28.2 % (20-40); Mean Corpuscular HGB Conc 33.5 g/dl (31.0-35.0); Mean Corpuscular Volume 86.6 fL (80.0-98.0); Mean Platelet Volume 8.9 fL (9.4-12.3); Monocytes Absolute Auto 0.8 X10*3/uL (0.1-1.2); Monocytes Percent Auto 8.6 % (2-11); Neutrophils Absolute Auto 5.4 x10*3/uL (2.0-8.3); Neutrophils Percent Auto 59.6 % (45-73); Platelet Count 303 X10*3/uL (160-400); Red Blood Count 4.79 X10*6/uL (4.20-5.50); Red Cell Distribution Width 13.4 % (11.0-16.0); White Blood Count 9.1 X10*3/uL (4.8-10.8)
[2024-05-28 15:09] LABS: Alanine Aminotransferase 15 U/L (0-31); Albumin Level 4.2 g/dL (3.5-5.0); Alkaline Phosphatase 56 U/L (39-117); Anion Gap 15 (12-20); Aspartate Amino Transferase 15 U/L (5-31); Bilirubin Total 0.3 mg/dL (0.0-1.0); Blood Urea Nitrogen 14 mg/dL (9-16); Calcium 9.5 mg/dL (8.4-10.2); Carbon Dioxide 23 mmol/L (22-29); Chloride 106 mmol/L (96-108); Creatinine Clr Calc Pharmacy 115.1; Estimated Glomerular Filt Rate > 60; Glucose Random 109 mg/dL (60-115); Magnesium 1.7 mg/dL (1.6-2.6); Potassium 3.8 mmol/L (3.3-5.1); Sodium 140 mmol/L (135-145)
[2024-05-28 18:57] LABS: Appearance Urine Clear; Color Urine Yellow; Glucose Urine UA Negative (Negative); Leukocyte Esterase Urine Negative (Negative); Nitrite Urine Negative (Negative); PH 5.5 (5.0-9.0); Specific Gravity - Urine 1.025 (1.005-1.025); Urine Blood Negative (Negative); Urine Ketones Negative (Negative); Urine Protein Trace mg/dL (Neg-Trace)
[2024-05-28] MEDS: 0.9 % Sodium Chloride 1,000 ML 999 ML IV (19:09)
[2024-05-28 19:10] LABS: OBS Int Ctl Valid YES; OBS1 POSITIVE (NEGATIVE)
[2024-05-28 19:13] LABS: Urine Pregnancy NEGATIVE (NEGATIVE)
[2024-05-28 19:14] LABS: UPreg QC Valid YES
[2024-05-28 19:27] VITALS: BP 119/83; PULSE 92; RESP 20; TEMP 37.2; O2SAT 100
[2024-05-28 21:59] VITALS: BP 126/87; PULSE 95; RESP 17; TEMP 36.9; O2SAT 98
[2024-05-29 00:29] VITALS: BP 141/79; PULSE 87; RESP 18; TEMP 36.8; O2SAT 97
[2024-05-29 01:36] VITALS: BP 141/79; PULSE 87; RESP 18; TEMP 36.8; O2SAT 97
== END 2024-05-29 01:35 | disposition home or self-care (01) ==
PROVIDERS: Physician Assistant Medical; Emergency Provider Emergency Medicine
DX: R10.9 Unspecified abdominal pain (principal); K62.5 Hemorrhage of anus and rectum
CPT/HCPCS: 36415; 74176; 80053; 81003; 81025; 82272; 83735; 85025; 86850; 86900; 86901; 99283; 99284

== ENCOUNTER 2025-09-06 17:16 | Emergency (ER) | payer OTHER, SELFPAY ==
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
[2025-09-06 17:20] VITALS: BP 115/82; PULSE 80; RESP 18; TEMP 36.6; O2SAT 98; BMI 34.4
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
[2025-09-06 19:16] VITALS: BP 115/82; PULSE 80; RESP 18; TEMP 36.6; O2SAT 98
--- OUTSIDE RECORDS SUMMARY | 2025-09-06 19:25 | XMS_ITS | Clinical Summary ---
Author Organization [address] Address [address] [place] [phone] Phone Care Team Providers Care Meteorological Equipment Repairer Name Role Phone Gudelia Baez MD Primary Care Prov ider Allergies Active Allergy Reactions Criticality Noted Date Comments Lobstliam Hives High 02/01/2021 Lobster Other High 02/07/2017 Seasonal Allergies, Cats Medications albuterol HFA (PROAIR HFA ; PROVENTIL HFA ; VENTOLIN HFA) 90 mcg/actuation inhaler Inhale 2 puffs by mouth every 6 (six) hours if needed for wheezing (Cough). for up to 90 days 3 Active cyclobenzaprine (FLEXERIL) 10 mg tablet Take 1 tablet (10 mg total) by mouth as needed. 3 Active diclofenac (VOLTAREN) 1 % topical gel Apply 1 g topically 4 (four) times a day if needed (for pain). 4 Active EPINEPHrine (EpiPen 2-Judah) 0.3 mg/0.3 mL injection Inject 0.3 mL (0.3 mg total) into the thigh if needed for anaphylaxis. Fill with whichever brand is covered by insurance. 3 Active fluticasone-salm eterol (ADVAIR DISKUS) 250-50 mcg/dose diskus inhaler Inhale 1 puff by mouth 2 (two) times a day. for 90 days. 3 Active montelukast (SINGULAIR) 10 mg tablet Take 1 tablet (10 mg total) by mouth at bedtime. 4 Active naproxen (NAPROSYN) 500 mg tablet Take 1 tablet (500 mg total) by mouth 2 (two) times a day if needed (for pain). 4 Active clotrimazole (LOTRIMIN) 1 % cream Apply topically 3 (three) times a day. in case of irritation Active etonogestreL-eth inyl estradioL (NUVARING) 0.12-0.015 mg/[address] RING VAGINALLY FOR 3 WEEKS DURATION. REMOVE. WAIT 1 WEEK UNTIL REPLACING WITH A NEW RING. 1 each 5 Active phentermine 15 mg capsuleIndicatio ns:Class 2 obesity due to excess calories with body mass index (BMI) of 37.0 to 37.9 in adult, unspecified whether serious comorbidity present Take 1 capsule (15 mg total) by mouth 1 (one) time each day before breakfast. Max Daily Amount: 15 mg 30 capsule 2 5 Active sertraline (ZOLOFT) 50 mg tablet TAKE 1 TABLET BY MOUTH 1 TIME EACH DAY. 30 tablet 5 Active Active Problems Problem Noted Date Diagnosed Date Asthma 07/08/2024 Assessment & Plan (03/29/2025 2:47 PM EDT): Asthma is well-controlled, no recent exacerbations or visits to emergency. ACT is 20. Will continue Advair, and albuterol as needed. 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 Previously on sertraline but she ran out of the medication around 3 months ago. Today she comes with exacerbation of her symptoms, triggered by many family problems, and her risk of homelessness. Insomnia, decreased appetite, restlessness. Will restart sertraline 25 mg a day. She is encouraged to make an appointment with behavioral health. Will sign FMLA for one month until established with . Orders: sertraline (ZOLOFT) 25 mg tablet; Take 1 tablet (25 mg total) by mouth 1 (one) time each day. Vitamin D deficiency 03/29/2022 Prediabetes 03/29/2022 Obesity (BMI 30.0-34.9) 03/29/2022 Overview (07/08/2024): s/p sleeve gastrectomy (08/2018) Dyslipidemia 03/29/2022 Seasonal allergies 02/14/2021 Nephrolithiasis 02/14/2021 NAFLD (nonalcoholic fatty liver disease) 018 Encounters Date Type Department Care Team Description 06/22/2025 Telephone Adult Medicine [address] [phone] Gudelia Baez MD from Last 3 Months Immunizations Immunization Administration Dates Next Due Hepatitis B ([id number]-T-Tmhsm , Recombivax HB-Adult) 19yo and older 06/01/1999,04/15/1998,03/16/1998 Influenza Quadravalent, MDCK , 0.5ml, preservative free (Flucelvax) 6mo and older 08/22/2021,08/29/2020,10/17/2018 Influenza trivalent, with pr eservative (Fluzone; Afluria) 6mo and older 08/31/2009 MMR, measles mumps and rubel la Live (Priorix; M-M-R II) 12mo and older 05/09/2019 Pneumococcal polysaccharide 23 valent (Pneumovax 23) 2yo and older 05/10/2010 Td Tetanus diptheria (Tdvax) 7yo and older 05/15 Tdap Tetanus diptheria acell ular pertussis (Boostrix; Adacel) 7yo and older 01/29/2018,11/18/2013 Surgical History Surgery Date Site/Laterality Comments BREAST REDUCTION 2010 PROCEDURE: NE BREAST REDUCTION SECTION PROCEDURE: HISTORICAL OTHER SURGICAL HISTORY 08/07/2018 PROCEDURE: NE GASTRIC RSTCV W/O BYP VERTICAL-BANDED GASTROPLY; COMMENT: Sleeve WISDOM TOOTH EXTRACTION PROCEDURE: HISTORICAL WISDOM TEETH EXTRACTION OTHER SURGICAL HISTORY PROCEDURE: HYSTEROSCOPY, SURGICAL/REMOV OBJECT; COMMENT: paragard IUD removed Medical History Medical History Date Comments Asthma DX:Asthma Sleep apnea DX:Sleep apnea NAFLD (nonalcoholic fatty liver disease) 018 DX:NAFLD (nonalcoholic fatty liver disease) Morbid obesity with BMI of 4 0.0-44.9, adult ([facility] V24, [facility] V28) 01/29/2018 DX:Morbid obesity wit h BMI of 40.0-44.9, adult ([facility]) 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:Abdomina l panniculus Nephrolithiasis 02/14/2021 DX:Nephrolithias is History of COVID-19 08/2023 DX:History o f COVID-19 Family History Medical History Relation Name Comments Other: allergy to strawberry and potato Aunt 1 Colon cancer Aunt 2 paternal Asthma Brother x 4 Hypertension Father HLD No Known Problems Maternal Grandfather Diabetes Maternal Grandmother HTN, os teoporosis Diabetes Mother HTN, HLD, depression/anxiety Breast cancer Mother's side 1 great GM bilateral Prostate cancer Mother's side 2 great GM Hypertension Paternal Grandmother HLD Ovarian cancer Neg Hx Relation Name Status Comments Aunt 1 Alive Aunt 2 paternal Alive Brother x 4 Alive Father Alive Maternal Grandfather Alive Maternal Grandmother Alive Mother Alive Mother's side 1 great GM Mother's side 2 great GM Paternal Grandfather Paternal Grandmother Alive Sister x 2 Alive Social History Tobacco Use Types Packs/Day Years Used Date Smoking Tobacco: Never Smokeless Tobacco: Never Tobacco Cessation:Counseling Given: Not Answered Alcohol Use Standard Drinks/Week Comments Yes 0 (1 standard drink = 0.6 oz pur e alcohol) Housing Instability Answer Date Recorde d Are you worried that in the next 2 months you may not have stable housing? No 03/29/2025 Food Access & Nutrition Answer Date Rec orded Do you have access to a vari ety of food including fruits and vegetables? Yes 03/29/2025 Health Literacy Answer Date Recorded How often do you need to hav e someone help you when you read instructions, pamphlets, or other written material from your doctor or pharmacy? Never 03/29/2025 Caregiver: How often do you need to have someone help you when you read instructions, pamphlets, or other written material from your doctor or pharmacy? Not on file 03/29/2025 Financial Risk Answer Date Recorded How hard is it for you to pa y for the very basics like food, housing, medical care, and air conditioning / heating? Not very hard 03/29/2025 Transportation Answer Date Recorded Has the lack of transportati on kept you from meetings, work, or from getting things needed for daily living? No Has the lack of transportati on kept you from medical appointments or from getting medications? No 03/29/2025 Social Isolation Answer Date Recorded How often do you feel lonely or isolated from th ose around you? Never 03/29/2025 Food Risk Answer Date Recorded Within the past 12 months we worried whether our food would run out before we got money to buy more. Never true 03/29/2025 Within the past 12 months th e food we bought just didn't last and we didn't have money to get more. Never true 03/29/2025 Dependent Care Answer Date Recorded Do you need help finding or paying for care for your loved ones. For example, child care supervisor or elderly care for an older adult? No 03/29/2025 Education Answer Date Recorded Do you think completing more education or training, like finishing a GED, going to college, or learning a trade, would be helpful for you? N/A 03/29/2025 Employment and Income Answer Date Recor ded During the last four weeks, have you been actively looking for work? No 03/29/2025 Living Situation Answer Date Recorded What is your living situation? Unrecognized valu e 03/29/2025 Comments No Sex and Gender Information Value Date Recorded Sex Assigned at Not on file Legal Sex Female 12:52 AM EST Gender Identity Not on file Sexual Orientation Not on file Obstetrics History Last Filed Vital Signs Vital Sign Reading Time Taken Comments Blood Pressure 116/79 04/27/2025 8:34 AM EDT Pulse 81 04/27/2025 8:34 AM EDT Temperature 36.4 C (97.5 F) 04/27/2025 8:34 AM EDT Respiratory Rate 14 04/27/2025 8:34 AM EDT Oxygen Saturation 98% 03/29/2025 1:49 PM EDT Inhaled Oxygen Concentration - - Weight 95 kg (209 lb 6.4 oz) 04/27/2025 8:34 AM EDT Height 162.6 cm (5' 4 ) 04/27/2025 8:34 AM EDT Body Mass Index 35.94 04/27/2025 8:34 AM EDT Plan of Treatment Upcoming Encounters Date Type Department Care Team (Late st Contact Info) Description 09/09/2025 10:30 AM EST Office Visit Adult Medicine [facility] [address], [place] [phone] Karma Oliveira PA [address], [place] 01/04/2026 11:15 AM EDT Office Visit Bariatric Surgery - [place] [address] [place] [address] Robin Jamison MD [address] [place] [phone] Health Maintenance Due Date Last Done Comments Breast Cancer Screening 1984 HPV Vaccines (1 - 3-dose SCDM series) 2011 Influenza Vaccine (#1) 2025 , 08/29/2020, 10/17/2018, Additional history exists Social Influencers of Health Screening 03/29/2026 03/29/2025 DTaP,Tdap,and Td Vaccines (4 - Td or Tdap) 01/30/2028 01/29/2018, 11/18/2013, 05/15/2005 Cervical Cancer Screening: HPV 02/13/2029 02/14/2024 Cholesterol Screening (Lipid Panel) 08/25/2029 08/25/2024, 10/25/2022 RSV Immunization Adult Patients (1 - 1-dose 75+ series) 2059 Hepatitis B Vaccines Completed 06/01/1999, 04/15/1998, 03/16/1998 Pneumococcal Vaccine: Pediatrics (0 to 5 Years) and At-Risk Patients (6 to 49 Years) Discontinued 05/10/2010 MMR Vaccines Aged Out 05/09/2019 No longer eligi ble based on patient's age to complete this topic COVID-19 Vaccine Discontinued 07/19/2021, 06/23/2021 HIV Screening Completed 02/14/2024, 02/14/2024 Hepatitis C Screening Completed 02/14/2024 Depression Screening Completed 04/27/2025, 06/30/20 24 HIB Vaccines Aged Out No longer eligi ble based on patient's age to complete this topic Hepatitis A Vaccines Discontinued IPV Vaccines Aged Out No longer eligi ble based on patient's age to complete this topic Meningococcal ACWY Vaccine Aged Out N o longer eligible based on patient's age to complete this topic Meningococcal B Vaccine Aged Out No l onger eligible based on patient's age to complete this topic RSV Immunization Patients Under 20 months Aged Out No longer eligible based on patient's age to complete this topic Varicella Vaccines Aged Out No longer eligible based on patient's age to complete this topic Procedures Procedure Name Priority Date/Time Associated Diagnosis Comments LIPID PANEL WITH REFLEX TO DIRECT LDL Routine 08/25/2024 8:40 AM EST Class 2 obesity due to excess calories with body mass index (BMI) of 37.0 to 37.9 in adult, unspecified whether serious comorbidity present DEPRESSION SCREENING Routine 06/30/2024 HPV Routine 02/14/2024 HEPATITIS C SCREENING Routine 02/14/2024 HIV SCREENING Routine 02/14/2024 from Last 3 Months or Most Recently Relevant to Health Maintenance Results * (ABNORMAL) Lipid panel with reflex to direct LDL (08/25/2024 8:40 AM EST) Cholesterol 186 0 - 200 mg/dL LAB CHEMISTRY METHOD 08/25/2024 10:38 AM [facility] Triglycerides 179(H) 0 - 150 mg/dL LAB CHEMISTRY METHOD 08/25/2024 10:38 AM EST [facility] HDL 40 >=40 mg/dL LAB CHEMISTRY METHOD 08/25/2024 10:38 AM EST [facility] LDL Calculated 110(H) 0 - 100 mg/dL LAB CHEMISTRY METHOD 08/25/2024 10:38 AM EST [facility] VLDL Cholesterol Kalia 35.8 mg/dL LAB CHEMISTRY METHOD 08/25/2024 10:38 AM [facility] Non HDL Chol. (LDL+VLDL) 146(H) <145 mg/dL LAB CHEMISTRY METHOD 08/25/2024 10:38 AM EST [facility] Chol/HDL Ratio 4.7(H) 0.0 - 4.4 LAB CHEMISTRY METHOD 08/25/2024 10:38 AM EST [facility] Blood Venous blood specimen / Unknown Venipuncture / Unknown 08/25/2024 8:40 AM EST 08/25/2024 8:40 AM EST Robin Jamison MD LAB BLOOD ORDERABLES Final R esult [facility] [address] [place] [address], * Depression Screening (06/30/2024) [facility] Depression Screening Abstracted [facility] Provider HEALTH MAINTENANCE Final Result * Cervical Cancer Screening: HPV (02/14/2024) [facility] Cervical Cancer Screening: HPV Negative, abstracted [facility] Provider HEALTH MAINTENANCE Final Result * HIV Screening (02/14/2024) [facility] HIV Screening Abstracted [facility] Provider HEALTH MAINTENANCE Final Result * Hepatitis C Screening (02/14/2024) [facility] Hepatitis C Screening Abstracted Historical Provider HEALTH MAINTENANCE Final Result from Last 3 Months or Most Recently Relevant to Health Maintenance Insurance [employer] Care Teams Meteorological Equipment Repairer Relationship Specialty Start Date End Date Gudelia Baez MD [address] [place] [phone] PCP - General Internal Medicine 05/07/22
--- OUTSIDE RECORDS SUMMARY | 2025-09-06 19:25 | XMS_ITS | Data Portability ---
Author Organization [facility] [address] Address [address] [place] [address] Assessment No assessment recorded. Plan of Treatment Reminders Order Date Submit Date Provider Last Modified By Organization Details Last Modified Time Details Appointments None recorded. Lab None recorded. Referral None recorded. Procedures None recorded. Surgeries None recorded. Imaging None recorded. Medication Orders cyclobenzap rine [address] [facility] ([place], [place])/Pharmacy #[id number], [address] [place], [address], 3 08:30:32 Patient TargetsNo targets recorded. Patient Instructions Encounter Date Encounter Id Patient Instructions Last Modified By Organization Details Last Modified Time 01/29/2023 [id number] torticollis: car e instructions [email or web address] Not available 01/29/2023 08:30:29 torticollis information [email or web address] Not available 01/29/2023 08:30:29 Continue taking over the counter ibuprofen per package instructions. Take the cyclobenzaprine (muscle relaxer) as prescribed. See printed instructions and work note. Follow-up with your doctor if no improvement in a few days. Seek Emergency Medical evaluation for any worsening symptoms. [email or web address] Not available 01/29/2023 08:31:53 Reason for Referral None Reported. 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 Procedures Surgical History Date Name Laterality Status Provider Name and Address Organization Details Recorded Time section completed ERIKA COOK [place] - [facility] 01/29/2023 08:15:39 Breast reduction completed ERIKAKEANU COOK [facility] 01/29/2023 08:15:46 laparoscopic sleeve gastrectomy [facility] 01/29/2023 08:16:00 extraction of wisdom tooth [facility] [place] [facility] 01/29/[facility]23 08:16:13 Imaging Results None recorded. Procedure Notes None recorded. Medical Equipment None Reported. Allergies No known drug allergies Medications Name Sig Start Date Stop Date Status Note LastModified by Organization Details LastModified Time cyclobenzap rine 10 mg tablet Take 1 tablet 3 times a day by oral route as needed. 2022 active Not Available Not Available Not Avai lable ketoconazol e 2 % shampoo APPLY TO SCALP 2X/WK, LEAVE ON 5 MINUTES THEN WASH OFF active Not Available Not Available No t Available vancomycin 125 mg capsule TAKE 1 CAPSULE BY MOUTH EVERY 6 HOURS FOR 10 DAYS 01/29 completed Not Available Not Available Not Available estradiol 1 mg tablet TAKE 1 TABLET BY MOUTH EVERY DAY FOR 14 DAYS 01/29 completed Not Available Not Available Not Available doxycycline monohydrate 100 mg capsule TAKE 1 CAPSULE BY MOUTH TWICE A DAY WITH MEAL AND A GLASS OF WATER 01/29 completed Not Available Not Available Not Available epinephrine 0.3 mg/0.3 mL injection, auto-inject or INJECT 0.3 MG INTO THE MUSCLE NEEDED FOR ANAPHYLAC TIC REACTION active Not Available Not Available No t Available tinidazole 500 mg tablet TAKE 4 TABLETS BY MOUTH FOR ONE DOSE 01/29 completed Not Available Not Available Not Available My Choice 1.5 mg tablet TAKE 1 TABLET BY MOUTH ONCE 01/29 completed Not Available Not Available Not Available Vitals Date Recorded Body height Body mass index (BMI) Body weight Pain severity - 0-10 verbal numeric rating [Score] - Reported Respiratory rate Oxygen saturation Heart rate Body temperature Systolic And Diastolic Provider Name and Address Organization Details Last Updated DateTime 3 162.56 cm 35.9 kg/m2 88119.8 1 g 9 18 /min 98 % 86 /min 98.3 [degF] 130/88 mm[Hg] ERIKA COOK PA - [facility] 08:17:36 Social History Question Answer Notes LastModified by Organizat ion Details LastModified Time Tobacco Smoking Status Never Smoker ERIKA COOK morris, [place] - [facility] 01/29/2023 08:15:15 Have You Recently Traveled Abroad? No [email or web address] Information not available 01/29/2023 Sex: Unknown Functional Status Question Answer Note LastModified by Organizat ion Details LastModified Time Do you use any illicit or recreational drugs? No [email or web address] Information not available 01/29/2023 Do you or have you ever used any other forms of tobacco or nicotine? No Information not available 01/29/2023 What is your level of alcohol consumption? Occasional [email or web address] Information not available 01/29/2023 Mental Status None recorded. Family History Relationship Description Onset Age of this Age Resolved Age Notes LastModified by Organization Details LastModified Time Father No current problems or disability [email or web address] Not available 01/29 08:14:52 Mother No current problems or disability [email or web address] Not available 01/29 08:14:52 Medical History No medical history recorded. Gynecological HistoryNo gynecological history recorded. Obstetrics History GPAL:G 0 P 0 0 0 0 Past Encounters Encounter ID Performer Location Encounter Start Date Encounter Closed Date Diagnosis/Indication Diagnosis SNOMED-CT Code Diagnosis ICD10 Code Diagnosis IMO Codes Diagnosis Note [id number] [address] [place] [address] 10/31/2018 18:58:27 10/31/2018 19:50:26 [id number] [address] [place] [address] 07/24/2018 18:27:39 07/24/2018 20:12:24 [id number] [address] [place] [address] 04/01/2016 11:39:17 04/01/2016 12:14:35 [id number] [address] [place] [address] 11/25/2019 11:16:07 11/25/2019 12:03:46 [id number] [address] [place] [address] 11/25/2018 08:46:39 11/25/2018 09:20:02 [id number] [address] [place] [address] 02/09/2019 18:28:21 02/09/2019 19:54:53 [id number] [address] [place] [address] 06/26/2018 19:24:07 06/26/2018 20:19:32 [id number] [address] [place] [address] 10/20/2020 12:42:09 10/20/2020 13:52:28 [id number] [address] [place] [address] 04/11/2020 16:55:03 04/11/2020 17:25:45 [id number] [address] [place] [address] 05/30/2015 12:32:07 05/30/2015 13:16:37 [id number] Johana Lamas MD [address] [place] [address] 01/29/2023 08:02:48 01/29/2023 08:42:38 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.3 Health Concerns Section Related Observation LastModified by Organization Detai ls LastModified Time None Recorded Concern Status LastModified by Organization Details LastModified Time None Recorded Advance Directives Directive None Recorded Payers Insurance Date Sequence Insurance Name Policy Number Policy Cook Covered Member ID Cook Member ID Guarantor Name 01/29/2023 2 [place] Suni E Vyas [id number] Suni E Vyas 01/29/2023 1 [facility] (MEDICAID REPLACEMENT - HMO) [place] Suni E Vyas [id number] Suni E Vyas 01/29/2023 PROMPT PAY Ni lda E Vyas 01/29/2023 1 [facility] (MEDICAID HMO) [id number] Suni E E Vyas [id number] Suni E Vyas Notes Date Note Type Note Provider Name and Address Organization Details Recorded Time 01/29/2023 text/html NeckReported by PatientHPIFor source of patient information, patient reportsinformation obtained from patientandpatient arrived at urgent care ambulatory. For location, patient reportsrightandlateral. For quality, patient reportsaching,constant, andworsening. For severity, patient reportsmoderate. For duration, patient reports3 daysandcontinuous since onset. For timing, patient reportsacute. For context, patient reportscannot identify. For alleviating factors, patient reportsnothing helps. For aggravating factors, patient reportsrom. For associated symptoms, patient reportsno weakness,no numbness,no tingling,no swelling,no redness,no warmth,no ecchymosis,no catching/locking,no popping/clicking,no grinding,no instability,no radiation down arm,no fever, andno chills. For previous surgery, patient reportsnone. For prior imaging, patient reportsnone. For previous injections, patient reportsnone. For previous pt, patient reportsnone.37 year old female presenting for evaluation of right lateral neck and trapezius pain and spasm getting worse for the past 3 days. No history of any trauma. No midline neck pain. No radiation down her arm. No numbness or weakness of the arm. No fever or chills. She has had similar symptoms in the past that were transient. Johana Lamas MD [address] [place], [address], [place] - [facility] 01/29/2023 08:39:53 OBGyn Episode No OBEpisode recorded.
--- OUTSIDE RECORDS SUMMARY | 2025-09-06 19:25 | XMS_ITS ---
Author Name [facility] Organization Unknown Care Team Organization Name Specialty Phone Email Start Date End Da te [facility] Xochitl Santana [facility] 12/12/2022 4 [facility] SUYAPA RTACY Primary [facility] 08/14/2022 05/25/20 24
== END 2025-09-06 19:52 | disposition home or self-care (01) ==
LOC: HO.ED 19:22
PROVIDERS: Emergency Provider Emergency Medicine Emergency Medical Services
DX: M25.511 Pain in right shoulder (principal); Z91.013 Allergy to seafood
CPT/HCPCS: 73030; 99282; 99283